=== PATIENT | male | born 1955 ===

== ENCOUNTER 2022-02-27 20:52 | Emergency (ER) | payer OTHER ==
--- OUTSIDE RECORDS SUMMARY | 2022-02-27 20:56 | XMS REPORT | Continuity of Care Document ---
:1955 Author Organization [facility] t Address [address] [place] [address] Care Team Providers Name Role Phone Joana Ortiz Attending Clinician Unavailable Problems This patient has no known problems. Allergies, Adverse Reactions, Alerts This patient has no known allergies or adverse reactions. Medications This patient has no known medications. Procedures This patient has no known procedures. Encounters Start End Encounter Admission Attending Care Care Encounter Source Date/Time Date/Time Type Type Clinicians Facility Department ID 2022-02-22 Outpatient Angel [facility] [id number] NPI:[id number] [facility] [id number] 2022-02-22 2022-02-22 ambulatory [facility] [id number] NPI:[id number] 00:00:00 00:00:00 [id number] Results Test Description Test Time Test Comments Results Result Comments Source HEMOGLOBIN A1c 2021-12-27 21:38:43 Test Item Value Reference Range Interpretation Comme nts HEMOGLOBIN A1c (test code = 59913) 6.0 % 4.2-5.6 H LIPID [id number] 05:02:56 Test Item Value Reference Range Interpretation Comments CHOLESTEROL (test 176 MG/DL <200 code = 2210) TRIGLYCERIDES (test 161 MG/DL <150 H code = 2232) HDL CHOLESTEROL (test 31 MG/DL >39 L code = 2220) CALC LDL CHOL (test 117 MG/DL <100 H NOTE: C ALCULATED LDL code = 2237) IS BASED ON RAVI-JIMÉNEZ METHOD WHICHINCLUDES ADJUSTABLE TRIGLYCERIDE:VL DL CHOLESTEROL RAT IO.THIS FACTOR VARIES B Y MEASURED TRIGLY CERIDE AND NON-HDLCHOL ESTEROL CONCENTRATIONS WITH INCREASED CALCU LATED LDL SEENIN HIGH ER TRIGLYCERIDE OR LOWER NON-HDL SPECIME NS. FOR MOREINFORMATION , SEE CLIENT ANNOUNCE MENT AT [email or web address] RATIO LDL/HDL 3.77 RATIO <3.55 H (test code = 2238) COMPREHENSIVE METABOLIC [id number] 05:02:56 Test Item Value Reference Range Interpretation Comments GLUCOSE (test code = 139 MG/DL 70-99 H 2216) BUN (test code = 13 MG/DL 8-23 2207) CREATININE (test 1.10 MG/DL 0.80-1.40 code = 221) eGFR (2020 CKD-EPI) 73 >60 (test code = 38562) ML/MIN/1.73 CALC BUN/CREAT (test 12 RATIO 6-28 code = 2235) SODIUM (test code = 142 MEQ/L 011-243 2934) POTASSIUM (test code 4.8 MEQ/L 3.5-5.4 = 2227) CHLORIDE (test code 99 MEQ/L 95-107 = 2214) CARBON DIOXIDE (test 23 MEQ/L 19-31 code = 2206) CALCIUM (test code = 10.2 MG/DL 8.5-10.5 2208) PROTEIN, TOTAL (test 7.3 G/DL 6.1-8.3 code = 2229) ALBUMIN (test code = 3.9 G/DL 3.5-5.2 2200) CALC GLOBULIN (test 3.4 G/DL 1.9-3.7 code = 2240) CALC A/G RATIO (test 1.1 RATIO 1.0-2.6 code = 2234) BILIRUBIN, TOTAL 1.2 MG/DL See_Comment [Automated message] (test code = 2207) The syste m which generated this result transmitted ref erence range: <=1.2. T he reference range was not used to int erpret this result as normal/abnormal . ALKALINE PHOSPHATASE 353 U/L 40-125 H (test code = 2204) AST (test code = 66 U/L 9-50 H 2217) ALT (test code = 54 U/L 5-50 H UNLE SS 2218) OTHERWISE INDIC ATED, ALL TESTING PER [facility] [address] [place] [place] [address] LABORATORY DIRE CTOR: ART WILHELM M.D. CLIA NUMBER [id number] CAP ACCREDITATION N O. [id number]
[2022-02-27] MEDS ORDERED: NA CHLORIDE 0.9% 500 ML ONE ×2 (21:54→22:22)
[2022-02-27 21:58] LABS: Hematocrit 37.3 % (39.6-49.0); MPV 11.3 fL (7.6-11.3); RBC Red Blood Cell Count 3.95 M/uL (4.33-5.43)
--- NOTE | 2022-02-27 22:11 | RAD REPORT ---
EXAM DESCRIPTION: Iman Single View02/27/2022 10:02 pm CLINICAL HISTORY: Abdominal pain COMPARISON: 2016 FINDINGS: Lungs are hyperaerated. The lungs appear clear of acute infiltrate. The heart is normal size IMPRESSION: No acute abnormalities displayed
[2022-02-27 22:14] LABS: Absolute Lymphocytes (CBC) 0.3 K/uL (0.7-4.9); Lymphocytes % 1.7 % (15.3-44.8)
[2022-02-27 22:30] LABS: ALT/SGPT 89 U/L (12-78); Albumin 1.8 g/dL (3.4-5.0); Alkaline Phosphatase 637 U/L (45-117); BUN Blood Urea Nitrogen 52 mg/dL (7-18); Bicarbonate 16 mmol/L (21-32); Bilirubin Direct 13.6 mg/dL (0-0.2); Glucose Level 114 mg/dL (74-106); NT PRO-BNP 339 pg/mL (<125); Phosphorus 3.5 mg/dL (2.5-4.9); Protein, Total 6.7 g/dL (6.4-8.2); Sodium Level 131 mmol/L (136-145); Troponin High Sensitivity 10.5 pg/mL (<58.9)
[2022-02-27 22:34] LABS: AST/SGOT 185 U/L (15-37); Potassium 5.1 mmol/L (3.5-5.1)
[2022-02-27 22:35] LABS: Magnesium 2.8 mg/dL (1.8-2.4); Protime INR 1.14
[2022-02-27 22:38] LABS: Bilirubin Total 18.9 mg/dL (0.2-1.0)
--- NOTE | 2022-02-27 22:38 | RAD REPORT ---
EXAM DESCRIPTION: CT - Head Brain Wo Cont - 02/27/2022 10:28 pm CLINICAL HISTORY: weakness COMPARISON: Head Brain Wo Cont dated 01/13/2017 TECHNIQUE: All CT scans are performed using dose optimization technique as appropriate and may inclu de automated exposure control or mA/KV adjustment according to patient size. FINDINGS: No intracranial hemorrhage, hydrocephalus or extra-axial fluid collection.No areas of brai n edema or evidence of midline shift. Remote basal ganglia lacunar infarcts. Age advanced cerebral at rophy. Mild chronic small vessel ischemic changes. Mastoid fluid bilaterally. Paranasal sinuses are well aerated. The calvarium is intact. IMPRESSION: No acute intracranial abnormality. Remote basal ganglia lacunar infarct .
--- NOTE | 2022-02-27 22:45 | RAD REPORT ---
EXAM DESCRIPTION: CTAbdomen Pelvis Wo Contrast - 02/27/2022 10:31 pm CLINICAL HISTORY: abdominal distention COMPARISON: No comparisons TECHNIQUE: CT of the abdomen and pelvis was performed. All CT scans are performed using dose optimization technique as appropriate and may include automated exposure control or mA/KV adjustment according to patient size. FINDINGS: Lower chest: Pulmonary nodules noted. The largest in the right lower lobe measures 8 gaby meters. Coronary artery calcifications. Liver: Innumerable metastatic lesions throughout both lobes of the liver. Several lesions in both the right and left hepatic lobe measure over 3 cm. Nodular liver contour. Biliary: Cholelithiasis. Stomach: No significant focal abnormality. Duodenum: No significant focal abnormality. Pancreas: No significant abnormality. Spleen: No significant abnormality. Adrenal: No suspicious lesions. Kidney/ureter: No hydronephrosis. No renal calculi. Too small to characterize and/or benign appearing renal lesions are noted. Retroperitoneum: No retroperitoneal adenopathy. Vascular: No aneurysm. Severe atherosclerosis . Bowel: Concentric thickening at the upper rectum.. Peritoneum: Small volume of ascites. Enlarged upper abdominal lymph nodes. For example there is a 2.2 cm upper abdominal lymph node. Bladder: Grossly unremarkable. Reproductive: No adnexal masses. Bones: No acute fracture. Other: n/a IMPRESSION: Findings consistent with metastatic disease with innumerable liver lesions and several p ulmonary nodules. While the patient has a background of cirrhosis (risk factor for HCC), findings are suspicious metastatic disease from a suspected mass in the upper third of the rectum. The liver lesi ons would be amenable to ultrasound-guided percutaneous biopsy for confirmation.
[2022-02-27] MEDS ORDERED: CEFTRIAXONE 1000 MG/VIAL ONE (23:02)
[2022-02-27] MEDS ORDERED: NA CHLORIDE 0.9% 1,000 ML ONE (23:03)
[2022-02-27] MEDS ORDERED: METRONIDAZOLE 500mg IVPB 500 MG/100 ML BAG IV ONE (23:03)
[2022-02-27 23:14] LABS: Arterial Blood Carboxyhemoglob 1.4 % (0-1.5); Blood O2 Saturation 96.1 % (92-98.5)
--- NOTE | 2022-02-28 01:14 | EDPHYS ---
Physician Documentation [facility] Name: Bjorn Reveles Age: 66 yrs Sex: Male : 1955 Arrival Date: 02/27/2022 Time: 21:09 Bed 5 Private MD: ED Physician Pb Oliveira HPI: 02/27 21:30 This 66 yrs old Unknown Male presents to ER via EMS with complaints of Weakness. mh7 21:30 The patient's problem is reported as weakness, in the right lower extremity, in the mh7 left lower extremity, that is generalized. Onset: The symptoms/episode began/occurred 2 day(s) ago. Duration: The episode is continuous. Context: the episode(s) was witnessed, by no one, symptoms became apparent on February 25, 2022, at an unknown time. The symptoms are alleviated by nothing. The symptoms are aggravated by nothing. Associated signs and symptoms: Pertinent negatives: abdominal pain, agitation, ataxia, blurred vision, chest pain, combativeness, confusion, diaphoresis, diarrhea, dizziness, headache, lightheadedness, nausea, numbness, palpitations, seizure, shortness of breath, tingling, vertigo, vomiting. Severity of symptoms: At their worst the symptoms were moderate 2 day(s) ago, in the emergency department the symptoms are unchanged. Patient's baseline: Neuro: alert and fully oriented, Motor: no deficits, Ambulation: walks without assistance, Speech: normal. Historical: - Allergies: 21:25 Codeine; as6 - PMHx: 21:25 Hypercholesterolemia; Hypertensive disorder; as6 - PSHx: 21:25 Appendectomy; as6 - Immunization history:: Adult Immunizations unknown. - Social history:: Smoking status: Patient reports the use of cigarette tobacco products, smokes one pack cigarettes per day. Patient uses alcohol, on a daily basis. ROS: 21:30 Constitutional: Negative for fever, chills, and weight loss. mh7 21:30 ENT: Negative for injury, pain, and discharge, Neck: Negative for injury, pain, and swelling, Cardiovascular: Negative for chest pain, palpitations, and edema, Respiratory: Negative for shortness of breath, cough, wheezing, and pleuritic chest pain, Abdomen/GI: Negative for abdominal pain, nausea, vomiting, diarrhea, and constipation, Back: Negative for injury and pain, : Negative for injury, bleeding, discharge, and swelling, MS/Extremity: Negative for injury and deformity. 21:30 Psych: Negative for depression, anxiety, suicide ideation, homicidal ideation, and hallucinations, Allergy/Immunology: Negative for hives, rash, and allergies, Endocrine: Negative for neck swelling, polydipsia, polyuria, polyphagia, and marked weight changes, Hematologic/Lymphatic: Negative for swollen nodes, abnormal bleeding, and unusual bruising. 21:30 Eyes: Positive for icterus. 21:30 Skin: Positive for jaundice. Exam: 21:30 Head/Face: Normocephalic, atraumatic. mh7 21:30 Neck: Trachea midline, no thyromegaly or masses palpated, and no cervical lymphadenopathy. Supple, full range of motion without nuchal rigidity, or vertebral point tenderness. No Meningismus. Chest/axilla: Normal chest wall appearance and motion. Nontender with no deformity. No lesions are appreciated. Cardiovascular: Regular rate and rhythm with a normal S1 and S2. No gallops, murmurs, or rubs. Normal PMI, no JVD. No pulse deficits. Respiratory: Lungs have equal breath sounds bilaterally, clear to auscultation and percussion. No rales, rhonchi or wheezes noted. No increased work of breathing, no retractions or nasal flaring. 21:30 Back: No spinal tenderness. No costovertebral tenderness. Full range of motion. Psych: Awake, alert, with orientation to person, place and time. Behavior, mood, and affect are within normal limits. 21:30 Constitutional: The patient appears in no acute distress, alert, awake, obviously ill. 21:30 Eyes: Sclera: icterus, is present. 21:30 ENT: Mouth: Oral mucosa: dry. 21:30 Abdomen/GI: Inspection: distension, that is moderate, Bowel sounds: normal, in all quadrants, Palpation: abdomen is soft and non-tender, in all quadrants, Indicators: McBurney's point is not tender, Osuna's sign is negative, Rovsing's sign is negative, Obturator sign is negative, Psoas sign is negative, Liver: is enlarged, Hernia: not appreciated. 21:30 Skin: Appearance: Color: jaundiced. 02/28 01:14 Radiologist reports: No acute findings, old basal ganglia lacunar infarct [facility] Vital Signs: 02/27 21:24 BP 85 / 61; Pulse 73; Resp 26; Temp 97.8; Pulse Ox 95% ; Weight 104.33 kg; Height 6 ft. as6 2 in. (187.96 cm); Pain 5/10; 22:30 BP 87 / 57; Pulse 71; Resp 20 S; Pulse Ox 93% on R/A; as6 23:30 BP 93 / 61; Pulse 68; Resp 24 S; Pulse Ox 94% on R/A; as6 05 00:27 BP 99 / 66; Pulse 66; Resp 18 S; Pulse Ox 95% on R/A; as6 01:20 BP 104 / 64; Pulse 70; Resp 22 S; Pulse Ox 98% on R/A; as6 02:13 BP 94 / 61; Pulse 73; Resp 23 S; Pulse Ox 94% on R/A; as6 02/27 21:24 Body Mass Index 29.53 (104.33 kg, 187.96 cm) as6 MDM: 01:09 Differential diagnosis: CVA, TIA, metabolic disorder, drug effects, liver disease. Data [facility] reviewed: vital signs, nurses notes, EMS record, lab test result(s), cardiac enzymes, CBC, electrolytes, urinalysis, EKG, radiologic studies, CT scan, plain films. Data interpreted: Pulse oximetry: on room air is 95 %. Interpretation: normal. Counseling: I had a detailed discussion with the patient and/or guardian regarding: the historical points, exam findings, and any diagnostic results supporting the discharge/admit diagnosis, lab results, radiology results, the need to transfer to another facility, [facility] does not immediately have the required specialist. Response to treatment: the patient's symptoms have mildly improved after treatment. 01:14 Patient medically screened. [facility] 02/27 21:32 Order name: Basic Metabolic Panel; Complete Time: 22:44 [facility] 02/27 21:32 Order name: CBC with Diff; Complete Time: 22:44 [facility] 02/27 21:32 Order name: LFT's; Complete Time: 22:44 [facility] 02/27 21:32 Order name: Magnesium; Complete Time: 22:44 [facility] 02/27 21:32 Order name: NT PRO-BNP; Complete Time: 22:44 [facility] 02/27 21:32 Order name: PT-INR; Complete Time: 22:44 [facility] 02/27 21:32 Order name: Troponin HS; Complete Time: 22:44 [facility] 02/27 21:32 Order name: Blood Culture Adult (2) [facility] 02/27 21:32 Order name: Lactate; Complete Time: 22:44 [facility] 02/27 21:32 Order name: Procalcitonin; Complete Time: 22:44 [facility] 02/27 21:38 Order name: AMMONIA; Complete Time: 22:44 [facility] 02/27 21:38 Order name: ETOH Level; Complete Time: 22:44 [facility] 02/27 21:32 Order name: XRAY Chest (1 view); Complete Time: 22:44 [facility] 02/27 21:32 Order name: CT Head Brain wo Cont; Complete Time: 22:44 [facility] 02/27 21:32 Order name: CT Abd/Pelvis - Without Contrast; Complete Time: 22:50 [facility] 02/27 21:38 Order name: Salicylate; Complete Time: 22:44 [facility] 02/27 21:39 Order name: COVID-19 SARS RT PCR (Document "Date of Onset" if Symptomatic); Complete [facility] Time: 00:03 02/27 21:39 Order name: Type And Screen; Complete Time: 00:03 [facility] 02/27 21:46 Order name: TSH [facility] 02/27 21:46 Order name: Phosphorus [facility] 02/27 21:50 Order name: Phosphorus; Complete Time: 22:44 [facility] 02/27 21:50 Order name: Acetaminophen Level; Complete Time: 22:44 [facility] 02/27 21:50 Order name: Thyroid Stimulating Hormone; Complete Time: 22:44 [facility] 02/27 22:52 Order name: Arterial Blood Gas; Complete Time: 00:03 [facility] 02/27 23:17 Order name: ABO/RH no charge; Complete Time: 00:03 [facility] 02/27 21:32 Order name: Cardiac monitoring; Complete Time: 21:46 [facility] 02/27 21:32 Order name: EKG - Nurse/Tech; Complete Time: 21:59 [facility] 02/27 21:32 Order name: IV Saline Lock; Complete Time: 21:47 [facility] 02/27 21:32 Order name: Labs collected and sent; Complete Time: 21:47 [facility] 02/27 21:32 Order name: O2 Per Protocol; Complete Time: 21:46 mh7 02/27 21:32 Order name: O2 Sat Monitoring; Complete Time: 21:46 mh7 Administered Medications: 02/27 21:59 Drug: NS 0.9% 500 ml Route: IV; Rate: bolus; Site: right antecubital; as6 02/28 01:41 Follow up: Response: No adverse reaction; IV Status: Completed infusion; IV Intake: as6 500ml 02/27 22:19 Drug: NS 0.9% 500 ml Route: IV; Rate: bolus; Site: right antecubital; lg3 02/28 01:42 Follow up: Response: No adverse reaction; IV Status: Completed infusion; IV Intake: as6 500ml 02/27 23:19 Drug: Rocephin (cefTRIAXone) 1 grams Route: IV; Rate: per protocol; Site: left lg3 antecubital; 23:19 Follow up: Response: No adverse reaction; IV Status: Completed infusion; IV Intake: 50manz5 23:19 Drug: Flagyl (metroNIDAZOLE) 500 mg Volume: 100 ml; Route: IVPB; Rate: 200 ml/hr; lg3 Infused Over: 30 mins; Site: right antecubital; 23:19 Follow up: Response: No adverse reaction; IV Status: Completed infusion; IV Intake: lg3 100ml 23:19 Drug: NS 0.9% 1000 ml Route: IV; Rate: 1000 ml; Site: right antecubital; lg3 02/28 01:42 Follow up: Response: No adverse reaction; IV Status: Completed infusion; IV Intake: as6 1000ml 01:50 Drug: D5-NS 1000 ml Route: IV; Rate: 100 ml/hr; Site: right antecubital; as6 02:15 Follow up: IV Status: Infusion continued upon transfer as6 Disposition Summary: 02/28/22 01:14 Transfer Ordered Transfer Location: [place] [address] Reason: Higher level of care mh7 Condition: Stable mh7 Problem: new mh7 Symptoms: have improved mh7 Accepting Physician: Dr. 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 DIVYASD EDSD 02/28 02:22 01:14 Dr. Figueroa 7 as6
--- NOTE | 2022-02-28 01:14 | ER ---
Nurse's Notes [facility] Name: Bjorn Reveles Age: 66 yrs Sex: Male : 1955 Arrival Date: 02/27/2022 Time: 21:09 Bed 5 Private MD: Diagnosis: Dehydration;Weakness;Rectal Mass, probable malignant with liver metastasis;Hyperbilirubinemia;Jaundice Presentation: 02/27 21:24 Chief complaint: EMS states: called out for lethargic. Coronavirus screen: At this as6 time, the client does not indicate any symptoms associated with coronavirus-19. Ebola Screen: No symptoms or risks identified at this time. Initial Sepsis Screen: Does the patient meet any 2 criteria? RR > 20 per min. Systolic BP < 90 mmHg. Yes Does the patient have a suspected source of infection? No. Patient's initial sepsis screen is negative. Risk Assessment: Do you want to hurt yourself or someone else? Patient reports no desire to harm self or others. Onset of symptoms is unknown. 21:24 Method Of Arrival: EMS: [facility] as6 21:24 Acuity: LETY 2 as6 Historical: - Allergies: 21:25 Codeine; as6 - PMHx: 21:25 Hypercholesterolemia; Hypertensive disorder; as6 - PSHx: 21:25 Appendectomy; as6 - Immunization history:: Adult Immunizations unknown. - Social history:: Smoking status: Patient reports the use of cigarette tobacco products, smokes one pack cigarettes per day. Patient uses alcohol, on a daily basis. Screenin/09 00:28 Abuse screen: Denies threats or abuse. Denies injuries from another. Nutritional as6 screening: No deficits noted. Tuberculosis screening: No symptoms or risk factors identified. Fall Risk None identified. Assessment: 02/27 21:40 General: Appears in no apparent distress. Behavior is calm, cooperative. Pain: as6 Complains of pain in right leg and left leg. Neuro: Level of Consciousness is awake, alert, obeys commands, Oriented to person, place, time, situation, Reports weakness in right leg and left leg. Cardiovascular: Patient's skin is warm and dry. Respiratory: Respiratory effort is even, unlabored, Respiratory pattern is regular, symmetrical. 21:40 EENT: Sclera/Cornea jaundiced . Derm: Skin is jaundiced. as6 02/28 00:26 GI: Abdomen is noted to have ascites. as6 01:42 Reassessment: Patient appears in no apparent distress at this time. Patient and/or as6 family updated on plan of care and expected duration. Pain level reassessed. Vital Signs: 02/27 21:24 BP 85 / 61; Pulse 73; Resp 26; Temp 97.8; Pulse Ox 95% ; Weight 104.33 kg; Height 6 ft. as6 2 in. (187.96 cm); Pain 5/10; 22:30 BP 87 / 57; Pulse 71; Resp 20 S; Pulse Ox 93% on R/A; as6 23:30 BP 93 / 61; Pulse 68; Resp 24 S; Pulse Ox 94% on R/A; as6 02/28 00:27 BP 99 / 66; Pulse 66; Resp 18 S; Pulse Ox 95% on R/A; as6 01:20 BP 104 / 64; Pulse 70; Resp 22 S; Pulse Ox 98% on R/A; as6 02:13 BP 94 / 61; Pulse 73; Resp 23 S; Pulse Ox 94% on R/A; as6 02/27 21:24 Body Mass Index 29.53 (104.33 kg, 187.96 cm) as6 ED Course: 02/27 21:09 Patient arrived in ED. mw2 21:16 Pb Oliveira MD is Attending Physician. mh7 21:17 Axel Hughes, STEFANY is Primary Nurse. as6 21:25 Triage completed. as6 21:26 Arm band placed on. as6 21:40 No provider procedures requiring assistance completed. Inserted saline lock: 20 gauge as6 in right antecubital area, using aseptic technique. Blood collected. 21:41 Salicylate Sent. lg3 21:41 ETOH Level Sent. lg3 21:41 AMMONIA Sent. lg3 21:47 Phosphorus Sent. lg3 21:48 TSH Sent. lg3 21:48 Salicylate Sent. lg3 21:48 ETOH Level Sent. lg3 21:48 AMMONIA Sent. lg3 21:48 Procalcitonin Sent. lg3 21:48 Lactate Sent. lg3 21:48 Blood Culture Adult (2) Sent. lg3 21:48 Basic Metabolic Panel Sent. lg3 21:48 CBC with Diff Sent. lg3 21:48 LFT's Sent. lg3 21:48 Magnesium Sent. lg3 21:48 NT PRO-BNP Sent. lg3 21:48 PT-INR Sent. lg3 21:48 Troponin HS Sent. lg3 22:03 XRAY Chest (1 view) In Process Unspecified. EDMS 22:18 Thyroid Stimulating Hormone Sent. lg3 22:18 Phosphorus Sent. lg3 22:18 Acetaminophen Level Sent. lg3 22:29 CT Head Brain wo Cont In Process Unspecified. EDMS 22:33 CT Abd/Pelvis - Without Contrast In Process Unspecified. EDMS 05 00:28 Placed in gown. Bed in low position. Call light in reach. Side rails up X2. Adult w/ as6 patient. Client placed on continuous cardiac and pulse oximetry monitoring. NIBP monitoring applied. 00:36 Intiated a transfer with Jessica from [facility] Transfer Center. mw2 00:[address] Oliveira with Dr. Figueroa from [facility]. 2 01:15 administrative approval given by Aruna Mccarthy/ patient has been accepted to [address] 10 C bed 1043/ Dr. Figueroa accepted the patient in transfer/report to be called to [phone]. 02:14 Patient transferred, IV remains in place. as6 Administered Medications: 02/27 21:59 Drug: NS 0.9% 500 ml Route: IV; Rate: bolus; Site: right antecubital; as6 02/28 01:41 Follow up: Response: No adverse reaction; IV Status: Completed infusion; IV Intake: as6 500ml 02/27 22:19 Drug: NS 0.9% 500 ml Route: IV; Rate: bolus; Site: right antecubital; lg3 02/28 01:42 Follow up: Response: No adverse reaction; IV Status: Completed infusion; IV Intake: as6 500ml 02/27 23:19 Drug: Rocephin (cefTRIAXone) 1 grams Route: IV; Rate: per protocol; Site: left lg3 antecubital; 23:19 Follow up: Response: No adverse reaction; IV Status: Completed infusion; IV Intake: 37gdot1 23:19 Drug: Flagyl (metroNIDAZOLE) 500 mg Volume: 100 ml; Route: IVPB; Rate: 200 ml/hr; lg3 Infused Over: 30 mins; Site: right antecubital; 23:19 Follow up: Response: No adverse reaction; IV Status: Completed infusion; IV Intake: lg3 100ml 23:19 Drug: NS 0.9% 1000 ml Route: IV; Rate: 1000 ml; Site: right antecubital; lg3 02/28 01:42 Follow up: Response: No adverse reaction; IV Status: Completed infusion; IV Intake: as6 1000ml 01:50 Drug: D5-NS 1000 ml Route: IV; Rate: 100 ml/hr; Site: right antecubital; as6 02:15 Follow up: IV Status: Infusion continued upon transfer as6 Intake: 02/27 23:19 IV: 100ml; Total: 100ml. lg3 23:19 IV: 10ml; Total: 110ml. lg3 02/28 01:41 IV: 500ml; Total: 610ml. as6 01:42 IV: 500ml; Total: 1110ml. as6 01:42 IV: 1000ml; Total: 2110ml. as6 Outcome: 01:14 ER care complete, transfer ordered by . [facility] 02:14 Transferred by ground EMS to [facility], Transfer form as6 completed. X-rays sent w/ patient. 02:14 Condition: stable 02:14 Instructed on the need for transfer. 02:22 Patient left the ED. as6 Signatures: Dispatcher [employer] [facility] Cole Buchanan 2 Leah Meeks, RN RN 3 Pb Oliveira MD MD 7 Axel Hughes RN RN as6 Corrections: (The following items were deleted from the chart) 02/27 21:26 21:25 PMHx: skin cancer; as6 as6 21:50 21:41 ACETAMINOPHEN+C.LAB.BRZ drawn and sent. lg3 EDMS 21:50 21:48 ACETAMINOPHEN+C.LAB.BRZ drawn and sent. lg3 EDMS
[2022-02-28] MEDS ORDERED: D5 0.9 NS 1,000 ML IV ONE (01:53)
[2022-02-28 02:52] VITALS: TEMP 97.8
[2022-02-28 03:02] VITALS: BP 94/61; O2SAT 94
--- NOTE | 2022-02-28 08:56 | EKG ---
Test Date: 2022-02-27 Test Time: 21:58:46 Specialist Field Engineer: FANY MEASUREMENT RESULTS: Intervals: Rate: 74 HI: 148 QRSD: 144 QT: 434 QTc: 481 [place]: P: -67 HI: 148 QRS: -72 T: 67 INTERPRETIVE STATEMENTS: Unusual P axis, possible ectopic atrial rhythm with premature supraventricular complexes Right bundle branch block Left anterior fascicular block Bifascicular block Abnormal ECG Compared to ECG 01/13/2017 09:32:38 Right bundle-branch block now present Bifascicular block now present Sinus rhythm no longer present Electronically Signed On 02-28-22 08:56:05 CDT by Vega Hartman
== END 2022-02-28 02:22 | disposition short-term general hospital (02) ==
LOC: ER 20:52
DX: E86.0 Dehydration (principal); K62.89 Other specified diseases of anus and rectum; E80.6 Other disorders of bilirubin metabolism; R17 Unspecified jaundice; E78.00 Pure hypercholesterolemia, unspecified; F17.210 Nicotine dependence, cigarettes, uncomplicated; I10 Essential (primary) hypertension; Z88.5 Allergy status to narcotic agent; Z20.822 Contact with and (suspected) exposure to COVID-19
CPT/HCPCS: 93005; 87040 ×2; 85025; 80048; 36415; 80320; 82140; 86900; 83735; 86850; 80329 ×2; 84100; 85610; 86901; 80076; 83605; 84443; 84484; 84145; 83880; 70450; 74176; 71045; 82805; U0003; J7042; J7040 ×2; J7030; J3490; 99285